=== PATIENT | female | born 1960 | race Caucasian/White ===

== ENCOUNTER 2020-03-06 09:38 | Inpatient (IN) | payer MEDICARE ==
[~2020-03-06] VITALS: Ht 157.5 cm; Wt 55.6 kg
[2020-03-06 10:10] LABS: ARTERIAL BLD GAS O2 SATURATION 93.2 % (92-100); ARTERIAL BLD GAS TCO2 CT 38.2; ARTERIAL BLOOD GAS BASE EXCESS 7.9 (-2-2); ARTERIAL BLOOD GAS HCO3 36.1 meq/L (22-26); ARTERIAL BLOOD GAS pH 7.34 (7.35-7.45)
[2020-03-06 10:12] LABS: ARTERIAL BLOOD GAS PCO2 68.6 mmHg (35-45)
[2020-03-06 10:19] LABS: BASO % 0.3 % (0.0-2.0); EOS # 0.1 (0.0-0.7); EOS % 2.1 % (0-4.0); GRAN # 5.3 (1.4-6.5); GRAN % 85.4 % (42.2-75.2); HEMATOCRIT 37.1 % (37.0-47.0); HEMOGLOBIN 12.4 g/dl (12.5-16.0); LYMPH # 0.5 (1.2-3.4); LYMPH % 7.6 % (20.0-51.0); MEAN CELL VOLUME 85 fl (80.0-100.0); MEAN CORPUSCULAR HEMOGLOBIN 29 pg (27.0-31.0); MEAN CORPUSCULAR HGB CONC 33 g/dl (33.0-37.0); MEAN PLATELET VOLUME 11.2 fl (7.4-10.4); MONO # 0.3 (0.1-0.6); MONO % 4.3 % (1.7-9.3); PLATELET COUNT 105 K/mm3 (130-400); RED BLOOD COUNT 4.35 M/mm3 (4.10-5.30); REDCELL DISTRIBUTION WIDTH-CV 11.5 % (11.5-14.5)
[2020-03-06 10:26] LABS: ALBUMIN 4.1 gm/dL (3.5-5.0); BILIRUBIN,TOTAL 0.7 mg/dL (0.0-1.0); CALCIUM 8.9 mg/dL (8.4-10.2); CREATININE, serum 0.36 (0.52-1.25); POTASSIUM 3.8 mmol/L (3.4-5.0); TOTAL PROTEIN 6.8 gm/dL (6.4-8.2)
[2020-03-06 13:02] LABS: ARTERIAL BLD GAS O2 SATURATION 96.1 % (92-100); ARTERIAL BLD GAS TCO2 CT 34.7; ARTERIAL BLOOD GAS BASE EXCESS 5.1 (-2-2); ARTERIAL BLOOD GAS HCO3 32.8 meq/L (22-26); ARTERIAL BLOOD GAS PCO2 63.3 mmHg (35-45); ARTERIAL BLOOD GAS PO2 83.4 mmHg (80-100); ARTERIAL BLOOD GAS pH 7.33 (7.35-7.45)
[2020-03-06 15:48] VITALS: BP 171/90; PULSE 101; TEMP 98.4
[2020-03-06] MEDS ORDERED: SUDAFED 12 HOU120 MG PO ×2 (15:49→16:06)
[2020-03-06] MEDS ORDERED: AZULFIDINE500 MG/TAB PO (15:50)
[2020-03-06] MEDS ORDERED: VENTOLIN0.09 MG IH (15:52)
[2020-03-06] MEDS ORDERED: FENTANYL 75MCG TD (15:53)
[2020-03-06] MEDS ORDERED: ATIVAN 0.50.5 MG/TAB PO (15:53)
[2020-03-06] MEDS ORDERED: CELEXA 20MG20 MG/TAB PO (15:54)
[2020-03-06] MEDS ORDERED: MICROZIDE12.5 MG PO (15:54)
[2020-03-06] MEDS ORDERED: REMERON 15M15 MG/TA1 PO (15:55)
[2020-03-06] MEDS ORDERED: NORCO 325 MG-101 TAB PO (15:57)
[2020-03-06] MEDS ORDERED: AZULFIDINE ENT500 MG PO (16:07)
[2020-03-06] MEDS ORDERED: ADVIL200 MG PO (16:15)
[2020-03-06] MEDS ORDERED: STOOL SOFTENER100 M2 PO (16:16)
--- NOTE | 2020-03-06 19:00 | NUR ---
Pt transported to floor and report given by ИРИНА Addison. BiPAP and O2 set up in pt's room by RT. Lung sounds diminished with labored and pursed lip breathing noted. No other significant findings upon assessment. Pt denies pain at this time, states she is feeling anxious. Pt reports feeling "okay" after resting in bed. Med rec completed and documented. Will continue to monitor. Call light within reach.
[2020-03-06 19:04] VITALS: BP 146/73; PULSE 107; TEMP 99.2
--- NOTE | 2020-03-06 20:41 | NUR ---
Received report from ИРИНА Orta and ИРИНА Izquierdo. Pt sitting up in bed, appears anxious. a/ox4. Denies any pain at this time. States she feels ansious and is worried about being short of breath. PRN ativan and scheduled meds administered. RT administered breathing treatments. Pt on 3LO2NC. SBA to BSC. Pt able to get out of bed without help and able to change briefs on her own, pad given to pt as requested. Tele monitor in place. IV to RFA intact with fluids infusing. Needs met at this time. Call light within reach.
[2020-03-06 23:26] VITALS: BP 150/76; PULSE 109; TEMP 98.7
[2020-03-07 04:43] VITALS: BP 127/69; PULSE 78; TEMP 97.9
--- NOTE | 2020-03-07 06:13 | NUR ---
Pt received PRN Ativan as requested for anxiety. Meds administered. Pt wore bipap during sleep. SBA to BSC. Needs met. Call light within reach.
[2020-03-07 06:40] LABS: GRAN % 69.6 % (42.2-75.2); HEMOGLOBIN 11.2 g/dl (12.5-16.0); LYMPH # 0.7 (1.2-3.4); LYMPH % 22.8 % (20.0-51.0); MEAN CELL VOLUME 87 fl (80.0-100.0); MEAN CORPUSCULAR HEMOGLOBIN 29 pg (27.0-31.0); MEAN CORPUSCULAR HGB CONC 33 g/dl (33.0-37.0); MEAN PLATELET VOLUME 12.1 fl (7.4-10.4); MONO # 0.2 (0.1-0.6); MONO % 7.6 % (1.7-9.3); PLATELET COUNT 109 K/mm3 (130-400); RED BLOOD COUNT 3.89 M/mm3 (4.10-5.30); REDCELL DISTRIBUTION WIDTH-CV 11.9 % (11.5-14.5)
[2020-03-07 06:48] LABS: HEMATOCRIT 33.7 % (37.0-47.0)
[2020-03-07 06:53] LABS: CALCIUM 8.5 mg/dL (8.4-10.2); CREATININE, serum 0.37 (0.52-1.25); POTASSIUM 4.1 mmol/L (3.4-5.0)
--- NOTE | 2020-03-07 07:11 | NUR ---
Report given to ИРИНА Diehl.
[2020-03-07 07:25] VITALS: BP 122/52; PULSE 99; TEMP 98.3
[2020-03-07 12:18] VITALS: BP 142/72; PULSE 102; TEMP 99.1
--- NOTE | 2020-03-07 13:34 | NUR ---
SW met with patient to complete intake and discuss discharge plan. Patient states that she lives in [place] with her sister, mom and nephew. Sisters name is Airam [phone], . She provides that she utilizes a walker and a wheelchair in her home, but only the wheelchair for short distances. She states that she does most of her ADL's independently, but notices that she needs assitance when bathing due to not being able to reach her legs all that well. Patient states her sister assists her with her showers currently. SW discussed home health services. Patient states that she utilized a home health agency when she lived in another state, but not at this time. SW provided patient with Medicare.gov's home health agencies that serves [place]. Patient states that her PCP is Dr. Eduarda Khan, and her pharmacy is [place] [facility]. She provides that she is able to afford her medication. Patient states that she does not have a DPOA-HC at this time, and would like some time to think about who she would like to appoint. SW provided information in regards to a SW being here over the weekend when she decides who she would like to appoint. SW had a conversation with patient about how she was feeling today, and she stated that she was unable to paticipate with therapy due to having a coughing episode. SW discussed importance in participation with therapy to ensure that the therapy team could see what services she would need when she goes home. Patient agreed and stated that she will make sure to make an effort tomorrow to do so. Patient plans to go back home upon her departure and had not questions or concerns in regards to discharge at this time. SW will continue to follow.
[2020-03-07 16:15] VITALS: BP 148/83; TEMP 98.3
[2020-03-07 19:51] VITALS: BP 166/86; PULSE 101; TEMP 98.9
--- NOTE | 2020-03-07 20:10 | NUR ---
At time of assessment, patient is alert and oriented and states she is "having a panic attack". 0.5 mg PO Ativan is administered at this time per patient request. After Ativan has kicked in, patient appears visibly less anxious, though her heart rate is tachycardic at 108 bpm. Heart sounds are normal/regular/tachycardic and lung sounds are coarse in all lobes with insp/exp wheezes. No edema is present. Patient is currently on 3L 02 nasal cannula. Will continue to monitor.
[2020-03-08] VITALS: BP 156/92; PULSE 89; TEMP 97.2
[2020-03-08 04:00] VITALS: BP 147/81; PULSE 98; TEMP 98.2
[2020-03-08 06:28] LABS: BASO % 0.3 % (0.0-2.0); EOS % 0.3 % (0-4.0); GRAN # 2.4 (1.4-6.5); GRAN % 63.6 % (42.2-75.2); LYMPH % 25.9 % (20.0-51.0); MEAN CELL VOLUME 88 fl (80.0-100.0); MEAN CORPUSCULAR HEMOGLOBIN 29 pg (27.0-31.0); MEAN CORPUSCULAR HGB CONC 33 g/dl (33.0-37.0); MEAN PLATELET VOLUME 11.8 fl (7.4-10.4); MONO # 0.4 (0.1-0.6); MONO % 9.4 % (1.7-9.3); PLATELET COUNT 113 K/mm3 (130-400); RED BLOOD COUNT 3.82 M/mm3 (4.10-5.30); REDCELL DISTRIBUTION WIDTH-CV 11.9 % (11.5-14.5)
--- NOTE | 2020-03-08 06:31 | NUR ---
Patient has has episodes of anxiety throughout the night, to which 0.5 mg Ativan was administered. Her pain has also been managed with Hydrocodone. She has been on BIPAP while in bed asleep. She has been slightly concerned about her left hand becoming reddened. This information was relayed to the charge nurse and will be passed on to the day shift nurse to inform the physician.
[2020-03-08 06:37] LABS: CALCIUM 8.5 mg/dL (8.4-10.2); CREATININE, serum 0.32 (0.52-1.25); POTASSIUM 3.8 mmol/L (3.4-5.0)
[2020-03-08 06:48] LABS: HEMATOCRIT 33.6 % (37.0-47.0)
[2020-03-08 07:29] VITALS: BP 143/87; PULSE 104; TEMP 98.8
--- NOTE | 2020-03-08 08:37 | NUR ---
Pt received breathing treatment, felt anxious afterwards, requesting ativan. LUCIANA Schwartz has seen/assessed pt. IV ativan one time ordered and administered. Pt requesting to take PO medication after she "settles down".
--- NOTE | 2020-03-08 10:47 | NUR ---
WILMA update: Met with patient about home health services and PT recommendations. Patient was given medicare. gov sheet for home health. Patient chose [facility] . WILMA faxed referral. Nothing follows.
--- NOTE | 2020-03-08 10:59 | NUR ---
Pt assessment completed and charted. Medications administered per OCT. Pt A&O, on 2-3L NC. Pt denies dizziness, SOB, n/v/d. Pt had some anxiety this morning, received ativan, states she is feeling a little better at the moment. Pt on tele, occasionally tachy. Pulses strong bilaterally. BS active x4. Insp wheezes. Pt states she wants to rest a little. No further needs expressed.
[2020-03-08 11:11] VITALS: BP 146/79; PULSE 85; TEMP 98.4
--- NOTE | 2020-03-08 13:08 | NUR ---
This nurse talked to pt sister and gave update. Family and pt were under impression she could have one visitor. This nurse apologized and educated pt on updated visitor policy, sister wasn't very happy but understood. No further needs at this time.
--- NOTE | 2020-03-08 14:12 | NUR ---
PT DID NOT FINISH SVN WANTED ATIVAN INSTEAD.
--- NOTE | 2020-03-08 14:22 | NUR ---
Pt to receive treatment from RT, pt requesting ativan. Pt appears anxious, states shes "not sure what I'm worked up about". Pt received PRN ativan, practicing breathing techniques, eyes closed.
[2020-03-08 16:18] VITALS: BP 138/73; PULSE 112; TEMP 98.4
--- NOTE | 2020-03-08 17:24 | NUR ---
This nurse in to get pt VS, pt assisted to bedside commode, no issues. Pt back to bed, states she is anxious, closes eyes and does deep breathing exercises. Pt stated she had a 6/10 back pain, [place] PRN administered per OCT. Pt began to relax and calm down as this nurse left room.
[2020-03-08 20:00] VITALS: BP 153/79; PULSE 92; TEMP 98.8
--- NOTE | 2020-03-08 20:00 | NUR ---
Bedside shift report received from Velma Duff RN. At time of assessment, patient is awake in bed. She is alert and oriented and on 3L 02 nasal cannula. She is feeling anxious at this time and requests 0.5 mg Ativan. Lung sounds have audible insp. wheezes in upper lobes and are coarse in lower lobes. Heart sounds are regular and tachy. No increased work of breathing is noted. Will continue to monitor.
[2020-03-09] VITALS (7 sets, daily range): BP systolic 122–152; BP diastolic 60–87; PULSE 75–104; TEMP 97.5–99.3
[2020-03-09 06:57] LABS: BASO % 0.4 % (0.0-2.0); EOS % 0.2 % (0-4.0); GRAN % 65.5 % (42.2-75.2); LYMPH # 1.1 (1.2-3.4); LYMPH % 22.8 % (20.0-51.0); MEAN CELL VOLUME 91 fl (80.0-100.0); MEAN CORPUSCULAR HEMOGLOBIN 29 pg (27.0-31.0); MEAN CORPUSCULAR HGB CONC 32 g/dl (33.0-37.0); MONO # 0.5 (0.1-0.6); MONO % 10.7 % (1.7-9.3); PLATELET COUNT 113 K/mm3 (130-400); RED BLOOD COUNT 3.81 M/mm3 (4.10-5.30); REDCELL DISTRIBUTION WIDTH-CV 11.9 % (11.5-14.5)
[2020-03-09 07:00] LABS: CALCIUM 8.4 mg/dL (8.4-10.2); CREATININE, serum 0.36 (0.52-1.25); POTASSIUM 4.7 mmol/L (3.4-5.0)
[2020-03-09 07:09] LABS: HEMATOCRIT 34.6 % (37.0-47.0)
--- NOTE | 2020-03-09 08:46 | NUR ---
Pt assessment completed and charted. Medications administered per OCT. Pt is A&O, sitting in bed. Pt on 3L NC, wore bipap at night. Pt had episode of "anxiety/panic attack" after receiving breathing tx. Pt requested ativan, administered by retail shift supervisor. Pt feeling very anxious, working on breathing techniques, eyes closed. Pt states she thinks her "anxiety is from the breathing treatments". LS diminished, HR tachy, reg rhythm, pulses strong bilaterally, no edema. Increased SOB w/ panic attacks. Satting well. RFA INT IV flushes w/o difficulty. No other concerns expressed. LUCIANA Schwartz in to assess patient.
--- NOTE | 2020-03-09 14:40 | NUR ---
Received a call from Irma Wood of [facility] about patient. Irma reported only receiving a face sheet and PT report for patient, with a note on fax sheet to contact patients sister for home address. Irma indicated not understanding what information was for, and that the agency does not service [facility]. SW did print off forms to send again, however if facility does not service [facility] then another facility may need to be found. Weekend SW will leave note for weekday SW to follow up.
--- NOTE | 2020-03-09 15:17 | NUR ---
Pt doing well. Wagner in to assess patient. Verbal order to DC pulmicort, pt discussed w/ wagner her preferences to not take it, states it "gives her anxiety". Pt requested and received PRN ativan prior to breathing tx this afternoon. No further needs expressed at this time.
--- NOTE | 2020-03-09 17:50 | NUR ---
Pt has had uneventful rest of day, no needs expressed.
--- NOTE | 2020-03-09 19:11 | NUR ---
Received report from Fabiola. Seen patient asleep in bed. With O2 at 2lpm via NC. With INt on right forearm. Bed alarm on. Call light within reach.
[2020-03-10 03:07] VITALS: BP 124/82; PULSE 89; TEMP 97.7
[2020-03-10 05:23] LABS: ARTERIAL BLD GAS O2 SATURATION 95.2 % (92-100); ARTERIAL BLOOD GAS HCO3 38.7 meq/L (22-26); ARTERIAL BLOOD GAS PO2 80.6 mmHg (80-100); ARTERIAL BLOOD GAS pH 7.32 (7.35-7.45)
[2020-03-10 05:28] LABS: ARTERIAL BLOOD GAS PCO2 77.1 mmHg (35-45)
--- NOTE | 2020-03-10 05:36 | NUR ---
Received a call from Lynette HARDIN regarding critical result of ABG of the patient. Called Dr. Orellana to relay the ABG PCO2. Patient currently on bipap. She is alert and awake. Denies pain. She's just requesting for Ativan.
[2020-03-10 06:26] LABS: BASO % 0.4 % (0.0-2.0); EOS # 0.4 (0.0-0.7); EOS % 5.2 % (0-4.0); GRAN # 3.2 (1.4-6.5); GRAN % 45.3 % (42.2-75.2); HEMOGLOBIN 11.1 g/dl (12.5-16.0); LYMPH # 2.7 (1.2-3.4); LYMPH % 37.3 % (20.0-51.0); MEAN CELL VOLUME 92 fl (80.0-100.0); MEAN CORPUSCULAR HEMOGLOBIN 29 pg (27.0-31.0); MEAN CORPUSCULAR HGB CONC 31 g/dl (33.0-37.0); MEAN PLATELET VOLUME 11.6 fl (7.4-10.4); MONO # 0.8 (0.1-0.6); MONO % 11.5 % (1.7-9.3); PLATELET COUNT 115 K/mm3 (130-400); RED BLOOD COUNT 3.86 M/mm3 (4.10-5.30)
[2020-03-10 06:29] LABS: HEMATOCRIT 35.6 % (37.0-47.0)
[2020-03-10 06:34] LABS: CALCIUM 8.3 mg/dL (8.4-10.2); CREATININE, serum 0.39 (0.52-1.25); POTASSIUM 3.7 mmol/L (3.4-5.0)
--- NOTE | 2020-03-10 06:38 | NUR ---
Patient had an uneventful night. Hooked back to nasal cannula now. Afebrile and denies pain this morning. Will endorse to day shift nurse.
--- NOTE | 2020-03-10 07:09 | NUR ---
PATIENT REQUESTS BACKUP RATE 10 ON BIPAP.
[2020-03-10 07:23] VITALS: BP 160/90; PULSE 109; TEMP 98.4
--- NOTE | 2020-03-10 07:24 | NUR ---
PATIENT WORE BIPAP LAST NOC.
--- NOTE | 2020-03-10 07:47 | NUR ---
PT SITITNG UP IN BED POST CXR. REPORTS FEELING ANXIOUS BUT "WORKING THROUGH IT". ON NC. ATIVAN GIVEN [id number]. PLEASANT MOOD. [id number]
[2020-03-10 11:16] VITALS: BP 138/80; PULSE 111; TEMP 98.3
--- NOTE | 2020-03-10 11:59 | NUR ---
PT REQUESTED PRN ATIVAN DOSE TO BE GIVEN AFTER THERAPY SESSION BUT CHANGED MIND STATING SHE TOLERATED SESSION BETTER THAN SHE EXPECTED. STATES WILL RE-ASK FOR MED IF NEEDED LATER
--- NOTE | 2020-03-10 14:18 | NUR ---
WILMA met with the patient to follow up on home health preference. The patient had chosen [facility] out of [place]. WILMA contacted and faxed a referral to Nidia at [facility]. Nidia reports that they are able to accept the patient for services. WILMA to inform the patient and will continue to follow.
[2020-03-10 15:24] VITALS: BP 142/80; PULSE 106; TEMP 98.9
--- NOTE | 2020-03-10 19:20 | NUR ---
Received report from Slava. Seen patient asleep, on bipap. She woke up when we're doing bedside endorsement. Reminded her on the intermittent use of bipap and nasal cannula and to stay on bipap at night. Patient verbalizes understanding. She states she might request for Ativan before she sleeps.
[2020-03-10 20:00] VITALS: BP 151/87; PULSE 109; TEMP 98.1
[2020-03-10 23:41] VITALS: BP 147/88; PULSE 93; TEMP 98.1
[2020-03-11 03:29] VITALS: BP 118/71; PULSE 85; TEMP 98.8
--- NOTE | 2020-03-11 06:33 | NUR ---
Patient used her bipap all through the night. Requested for Ativan this morning. She has back pain with pain score of 7/10 but doesn't want to take the pain medicine together with Ativan. Will endorse to day shift nurse that pain medicine can be given anytime.
[2020-03-11 06:47] LABS: ARTERIAL BLD GAS O2 SATURATION 91.1 % (92-100); ARTERIAL BLD GAS TCO2 CT 40.1; ARTERIAL BLOOD GAS BASE EXCESS 11.2 (-2-2); ARTERIAL BLOOD GAS HCO3 38.1 meq/L (22-26); ARTERIAL BLOOD GAS PCO2 62.7 mmHg (35-45); ARTERIAL BLOOD GAS PO2 61.1 mmHg (80-100)
--- NOTE | 2020-03-11 07:13 | NUR ---
PATIENT WORE BIPAP ALL NIGHT. ABG WAS ON 3 LPM.
[2020-03-11 07:46] VITALS: BP 142/71; PULSE 109; TEMP 98.8
--- NOTE | 2020-03-11 10:02 | NUR ---
Assessment complete. Patient sitting up in bed awake and alert. States she feels "lowsy" but could not describe why. She understands her POC for this time. Didnt express any pain outside of her chronic pain. Fentanyl patch was changed per orders. Removed the old from her left lower abdomen and replaced the new on her right lower abdomen. Pt took her pills with pudding. No other issues or requests at this time. Call light is in reach.
[2020-03-11 11:29] VITALS: BP 134/85; PULSE 116; TEMP 98.9
--- NOTE | 2020-03-11 12:19 | NUR ---
First visit from the asset protection lead. Patient requested prayer. Mold Filling Operator prayed with patient. No other needs right now.
--- NOTE | 2020-03-11 12:29 | NUR ---
Pt reported having an anxiety attack at this time and requested 1mg of ativan for this, this was provided to her. Head of bed elevated for easier breathing. No other needs at this time. Will continue to monitor.
--- NOTE | 2020-03-11 13:51 | NUR ---
SVN VIA BIPAP, TOLERATED WELL.
[2020-03-11 15:30] VITALS: BP 149/83; PULSE 121; TEMP 98.7
--- NOTE | 2020-03-11 18:29 | NUR ---
Pt has had a good day. She had one episode of anxiety about mid-day but the ativan worked well to control this. Pain was very well managed by GERARDO juarez. Patient has been eating relatively well. No other issues through the day. Call light is in reach.
[2020-03-11 19:42] VITALS: BP 141/79; PULSE 109; TEMP 98.7
--- NOTE | 2020-03-11 22:10 | NUR ---
Received report from ИРИНА Hoang. Pt resting in bed, wacthing videos in cell phone. NAD. Denies any pain or concerns at this time. PT requested PRN Ativan, administered as requested with other scheduled PM meds. Tele monitor in place. INT to RFA intact, flushed, dressing CDI. Needs met at this time. Pt placed bipap on self. Call light within reach.
[2020-03-11 23:28] VITALS: BP 133/79; PULSE 98; TEMP 98.2
[2020-03-12 03:33] VITALS: BP 127/74; PULSE 94; TEMP 98.2
[2020-03-12 05:57] LABS: BASO % 0.2 % (0.0-2.0); EOS # 0.2 (0.0-0.7); EOS % 2.4 % (0-4.0); GRAN # 6.4 (1.4-6.5); GRAN % 66.9 % (42.2-75.2); LYMPH % 20.6 % (20.0-51.0); MEAN CELL VOLUME 90 fl (80.0-100.0); MEAN CORPUSCULAR HEMOGLOBIN 28 pg (27.0-31.0); MEAN CORPUSCULAR HGB CONC 31 g/dl (33.0-37.0); MEAN PLATELET VOLUME 11.9 fl (7.4-10.4); MONO # 0.9 (0.1-0.6); MONO % 9.5 % (1.7-9.3); PLATELET COUNT 136 K/mm3 (130-400); RED BLOOD COUNT 3.91 M/mm3 (4.10-5.30); REDCELL DISTRIBUTION WIDTH-CV 12.3 % (11.5-14.5)
[2020-03-12 06:02] LABS: HEMATOCRIT 35.3 % (37.0-47.0)
[2020-03-12 06:09] LABS: CALCIUM 8.5 mg/dL (8.4-10.2); CREATININE, serum 0.32 (0.52-1.25); POTASSIUM 4.1 mmol/L (3.4-5.0)
--- NOTE | 2020-03-12 06:14 | NUR ---
PRN ativan administered prior to sleep as requested by pt. Pt wore bipap all night. No other complaints made. MEds administerd. Call light within reach.
[2020-03-12 06:45] LABS: ARTERIAL BLD GAS O2 SATURATION 94.4 % (92-100); ARTERIAL BLD GAS TCO2 CT 34.1; ARTERIAL BLOOD GAS HCO3 32.4 meq/L (22-26); ARTERIAL BLOOD GAS PCO2 55.8 mmHg (35-45); ARTERIAL BLOOD GAS PO2 71.9 mmHg (80-100); ARTERIAL BLOOD GAS pH 7.38 (7.35-7.45)
--- NOTE | 2020-03-12 06:49 | NUR ---
Report given to ИРИНА Hoang.
--- NOTE | 2020-03-12 06:59 | NUR ---
ABG THIS AM BETTER THAN YESTERDAY, BLOOD CHRIS ON BIPAP.
[2020-03-12 07:34] VITALS: BP 114/66; PULSE 108; TEMP 98.5
--- NOTE | 2020-03-12 08:42 | NUR ---
Assessment complete. Patient sitting up in bed, awake and alert at this time. States she feels better than she did yesterday and is hoping to go home. Seems to be in better spirits today. Understands her plan of care. IV site is CD&I at this time, flushed well. Pt reported pain at a 7 out of 10 in her back, PRN pain medication was provided for this. No other complaints, states she is comfortable. Call light is in reach.
[2020-03-12] MEDS ORDERED: FENTANYL 50MCG TD (09:50)
[2020-03-12] MEDS ORDERED: PREDNISONE10 MG PO (09:55)
--- NOTE | 2020-03-12 10:04 | NUR ---
The patient is to discharge back home with her family today, 03/12, with home health services for halfway/PT/OT through [facility]. WILMA contacted and faxed the patient's discharge orders to Nidia at [facility]. WILMA met with the patient and presented and read the IM form outloud to the patient. The patient verbalized understanding and gave WILMA approval to sign the form on her behalf. WILMA provided her with a copy. The patient reports that she will need a portable oxygen tank to go home on and that [facility]. WILMA contacted Clara at [facility] [employer]. [facility] is partnered with [facility]. Clara reports that they will deliver a portable tank to the patient's room. No additional needs at this time.
--- NOTE | 2020-03-12 10:43 | NUR ---
Patient is aware of her plan of care and the plan to discharge today. Requested 0.5 of ativan at this time for mild anxiety., this was provided to her. States [place] improved her pain from this morning. No other needs were expressed at this time. Call light is in reach.
[2020-03-12 11:48] VITALS: BP 138/85; PULSE 93; TEMP 97.7
--- NOTE | 2020-03-12 12:49 | NUR ---
Patient left the floor at this time. Discharge instructions were discussed. Portable oxygen was provided, belongings went with her. No further questions or concerns expressed.
== END 2020-03-12 12:50 | disposition home health service (06) | DRG 190 ==
LOC: COL.ER 09:38 → MEDICAL 11:30
PROVIDERS: Family Medicine; Internal Medicine Pulmonary Disease; Physician Assistant; Student in an Organized Health Care Education/Training Program; ADMIT Hospitalist
DX: J44.1 Chronic obstructive pulmonary disease with (acute) exacerbation (principal); J96.21 Acute and chronic respiratory failure with hypoxia; E87.1 Hypo-osmolality and hyponatremia; E87.3 Alkalosis; I10 Essential (primary) hypertension; F41.9 Anxiety disorder, unspecified; M06.9 Rheumatoid arthritis, unspecified; E87.8 Other disorders of electrolyte and fluid balance, not elsewhere classified; F32.9 Major depressive disorder, single episode, unspecified; D69.6 Thrombocytopenia, unspecified; G89.29 Other chronic pain; R73.9 Hyperglycemia, unspecified; Z87.891 Personal history of nicotine dependence
CPT/HCPCS: 99222-AI; 99232-AI; 99239; J1650; J1815; J2060; J2920; J7030; J7512